=== PATIENT | female | born 1975 | race Caucasian/White ===

== ENCOUNTER 2017-06-06 16:17 | Emergency (ER) | payer OTHER ==
[~2017-06-06] VITALS: Ht 177.8 cm; Wt 125.8 kg
[~2017-06-06 16:17] MED LIST: ACIDOPHILUS1 EAC4 PO; ATARAX,VISTARIL50 MG PO; BACTRIM,SEPT1 TABLET PO; BENADRYL25 MG PO; CEPHALEXIN500 MG PO; CLARITIN10 M3 PO; CYMBALTA60 MG PO; DESYREL 150 MG150 MG PO; DESYREL100 MG PO; DIFLUCAN50 MG PO; ESSENTIAL WOMA1 EAC1 PO; FISH OIL PO; FLAGYL500 MG PO; FLUOXETINE HCL20 MG PO; FLUOXETINE HCL40 MG PO; HYDROCORTISON28.4 GM TP; HYDROXYZINE HCL50 MG PO; KEFLEX500 MG PO; LAMICTAL25 MG PO; LATUDA20 MG PO; LISINOPRIL-HCT1 EACH PO; LISINOPRIL10 MG PO; LORADAMED10 MG PO; METOPROLOL SUCC50 MG PO; MULTIVITAMIN1 EAC2 PO; NAPROSYN500 MG PO; NORCO 5/3251 TABLET PO; OLANZAPINE10 MG PO; PANTOPRAZOLE SO40 MG PO; PEPCID20 MG PO; PRAVACHOL40 MG PO; PRAVASTATIN SOD40 MG PO; PROZAC20 MG PO; PROZAC40 MG PO; VALIUM5 MG PO
[2017-06-06] MEDS ORDERED: VITAMIN D5000 UNI1 PO (18:20)
[2017-06-06] MEDS ORDERED: APPLE CIDER VINEGAR (18:21)
[2017-06-06] MEDS ORDERED: GARLIC (18:22)
[2017-06-06 19:06] LABS: HEMATOCRIT 39.7 % (36.0-46.0); MCH 28.4 PG (29.0-34.0); MCHC 32.7 G/DL (30.0-36.0); MCV 86.7 FL (83-99); MEAN PLAT.VOLUME 9.9 uM^3 (9.5-12.4); PLATELET COUNT 334 K/uL (156-360); RBC DIS.WIDTH-CV 12.1 % (11.8-14.6); RBC DIS.WIDTH-SD 38.6 % (39-53); RED BLOOD COUNT 4.58 M/uL (3.80-5.20); WHITE BLOOD COUNT 9.1 K/uL (4.1-10.2)
[2017-06-06 19:15] LABS: CHLORIDE 105 mEq/L (99-109); SODIUM 139 mEq/L (136-147)
[2017-06-06 19:16] LABS: GLUCOSE 101 mg/dL (70-99)
[2017-06-06 19:18] LABS: ANION GAP 12 MEQ/L (2-14)
[2017-06-06 19:20] LABS: GFR ESTIMATE (CALCULATED) > 59 mL/min/
[2017-06-06 19:21] LABS: UREA NITROGEN (BUN) 15 mg/dL (9-23)
[2017-06-06 19:27] LABS: TROP-I INTERPRETATION NEGATIVE; TROPONIN-I < 0.01 ng/mL (0.0-0.30)
[2017-06-06 19:28] LABS: ADD MIUA? NO; BILIRUBIN NEGATIVE; BLOOD NEGATIVE; COLOR COLORLESS ((YELLOW)); GLUCOSE (STRIP) NEGATIVE; KETONES NEGATIVE; LEUKOCYTES NEGATIVE; NITRITE NEGATIVE; PROTEIN (STRIP) NEGATIVE; SPECIFIC GRAVITY 1.006 (1.000-1.030); UROBILINOGEN 0.2 MG/DL (0.2-1.0)
[2017-06-06 20:05] LABS: UCUL ADDED? NO
[2017-06-06 20:45] VITALS: BP 158/92
== END 2017-06-06 20:45 | disposition home or self-care (01) ==
LOC: EME 16:17
PROVIDERS: Nurse Practitioner Family
DX: I10 Essential (primary) hypertension (principal); R20.0 Anesthesia of skin; R53.83 Other fatigue; Z88.8 Allergy status to other drugs, medicaments and biological substances
CPT/HCPCS: 70450; 80048; 81003; 84439; 84443; 84484; 85027; 93005; 99281; 99284